=== PATIENT | male | born 1980 | race Caucasian/White ===

== ENCOUNTER 2017-12-01 11:21 | Emergency (ER) | payer BC, OTHER ==
--- NOTE | 2017-12-01 13:04 | RAD ---
ABDOMINAL SURVEY WITH UPRIGHT CHEST AND TWO VIEW ABDOMEN: HISTORY: Abdominal pain. FINDINGS: The lung borrego are clear. The bowel gas pattern is unremarkable. Scattered stool and gas are noted throughout the colon. No f ree air, mass, or abnormal calcification. IMPRESSION: Unremarkable abdominal survey. POS: JAN
== END 2017-12-01 13:27 | disposition home or self-care (01) ==
LOC: ERS 11:21
DX: R10.9 Unspecified abdominal pain (principal); V43.52XA Car driver injured in collision with other type car in traffic accident, initial encounter; W22.11XA Striking against or struck by driver side automobile airbag, initial encounter
CPT/HCPCS: 74022

== ENCOUNTER 2022-08-30 15:35 | Inpatient (IN) | payer BC ==
[~2022-08-30 15:35] MED LIST: Iopamidol-370 76% 500 ML 1 ML ONE
[2022-08-30] MEDS ORDERED: Bacitracin 1 PK ONE ×2 (15:41→16:01)
[2022-08-30] MEDS ORDERED: Boostrix 0.5 ML (Tdap) VIAL (>/=7 yrs of age) ONE (15:55)
[2022-08-30] MEDS ORDERED: CEFAZOLIN 2 GM VIAL ONE (15:55)
[2022-08-30 15:57] LABS: #Eosinphils 0.1 thou/uL (0.0-0.7); #Monocytes 0.7 thou/uL (0.11-0.59); #Neutrophils 5.2 thou/uL (1.40-6.50); %Basophils 0.4 % (0.0-1.0); %Eosinophils 0.9 % (0.0-10.0); %Monocytes 6.8 % (0.0-10.0); %Neutrophils 51.8 % (42.0-75.0); Hemoglobin 14.5 g/dL (14.0-18.0); Mean Corpuscular HGB CONC 32.9 g/dL (32.0-36.0); Mean Corpuscular Volume 94.4 fl (78.0-98.0); Mean Platelet Volume 7.2 fL (7.4-10.4); Platelet Count 289 10x3/uL (130-400); RBC Distribution Width 11.2 % (11.5-14.5); Red Blood Cell (RBC) Count 4.68 mill/uL (4.70-6.10); White Blood Cell (WBC) Count 9.9 10x3/uL (4.8-10.8)
[2022-08-30 16:19] LABS: ALT (SGPT) 30 U/L (8-55); AST (SGOT) 40 U/L (5-34); Albumin 4.6 g/dL (3.5-5.0); Alkaline Phosphatase 64 U/L (40-110); Anion Gap 14 mmol/L (10-20); BUN (Urea Nitrogen) 10 mg/dL (8.9-20.6); Bilirubin, Total 0.7 mg/dL (0.2-1.2); Calc. Creatinine Clearance 0 mL/min (70-130); Calcium 9.4 mg/dL (7.8-10.44); Carbon Dioxide 25 mmol/L (22-29); Chloride 104 mmol/L (98-107); Estimated GFR 109; Globulin 3.5 g/dL (2.4-3.5); Glucose 111 mg/dL (70-105); Potassium 3.5 mmol/L (3.5-5.1); Protein, Total 8.1 g/dL (6.0-8.3); Sodium 139 mmol/L (136-145)
[2022-08-30] MEDS ORDERED: Morphine 4 MG/ML VIAL ONE (16:28)
[2022-08-30] MEDS ORDERED: TETANUS, DIPHTHERIA TOX,ADULT (TDVAX) 0.5 ML VIAL IM ONE (17:37)
[2022-08-30] MEDS ORDERED: Morphine 2 MG/ML VIAL SLOW IVP PRN (17:37)
[2022-08-30] MEDS ORDERED: Promethazine HCl 25 MG/ML VIAL IM PRN (17:37)
[2022-08-30] MEDS ORDERED: hydrALAZINE 20 MG/ML VIAL SLOW IVP PRN (17:37)
[2022-08-30] MEDS ORDERED: Ondansetron PF 4 MG/2 ML Vial IVP PRN (17:37)
[2022-08-30] MEDS ORDERED: traMADol HCl 50 MG TAB PO PRN (17:41)
[2022-08-30] MEDS: traMADol HCl 50 MG TAB PO SCH (20:11)
[2022-08-30] MEDS: Acetaminophen 325 MG TAB PO SCH (20:11)
[2022-08-30] MEDS: CEFAZOLIN 2 GM in Sodium Chloride 0.9% 100 ML IVPB SCH (20:24)
[2022-08-30] MEDS: Sodium Chloride 0.9% 1,000 ML IV SCH (20:24)
[2022-08-30] MEDS: Famotidine/PF 20 mg/2ml Vial SLOW IVP SCH (20:24)
[2022-08-30] MEDS ORDERED: Morphine 4 MG/ML VIAL SLOW IVP PRN (21:19)
[2022-08-30 21:47] LABS: SARS-CoV-2 NAA Rapid Test Not Detected (NotDetected)
[2022-08-31] MEDS: traMADol HCl 50 MG TAB PO SCH ×5 (00:12→23:56)
[2022-08-31] MEDS: Acetaminophen 500 MG TAB PO SCH ×5 (00:20→23:56)
[2022-08-31] MEDS ORDERED: Acetaminophen 500 MG TAB PO SCH (00:30)
[2022-08-31] MEDS: Acetaminophen 325 MG TAB PO SCH (00:38)
[2022-08-31 03:20] VITALS: BMI 28.5
[2022-08-31] MEDS: Sodium Chloride 0.9% 1,000 ML IV SCH ×2 (05:41→11:05)
[2022-08-31] MEDS: CEFAZOLIN 2 GM in Sodium Chloride 0.9% 100 ML IVPB SCH ×3 (05:51→21:09)
[2022-08-31 06:38] LABS: Anion Gap 11 mmol/L (10-20); BUN (Urea Nitrogen) 11 mg/dL (8.9-20.6); Calc. Creatinine Clearance 142 mL/min (70-130); Calcium 8.6 mg/dL (7.8-10.44); Carbon Dioxide 27 mmol/L (22-29); Chloride 103 mmol/L (98-107); Estimated GFR 110; Glucose 93 mg/dL (70-105); Magnesium 2.1 mg/dL (1.6-2.6); Phosphorus 4.3 mg/dL (2.3-4.7); Potassium 4.3 mmol/L (3.5-5.1); Sodium 137 mmol/L (136-145)
[2022-08-31 06:53] LABS: Hemoglobin 13.8 g/dL (14.0-18.0); Mean Corpuscular HGB CONC 32.6 g/dL (32.0-36.0); Mean Corpuscular Hemoglobin 31.6 pg (27.0-31.0); Mean Corpuscular Volume 96.8 fl (78.0-98.0); Mean Platelet Volume 7.1 fL (7.4-10.4); Platelet Count 247 10x3/uL (130-400); RBC Distribution Width 11.1 % (11.5-14.5); Red Blood Cell (RBC) Count 4.36 mill/uL (4.70-6.10); White Blood Cell (WBC) Count 8.2 10x3/uL (4.8-10.8)
[2022-08-31 08:18] LABS: Band 3 % (5-11); Eosinophils 2 % (0-10); Lymphocytes 36 % (21-51); MDiff Complete? YES; Monocytes 7 % (0-10); Neutrophil 52 % (42-75); Platelet Morphology Comment Appears Adequate; RBC Morphology Normal
[2022-08-31] MEDS: Levothyroxine Sodium 75 MCG TAB PO SCH (08:34)
[2022-08-31] MEDS: Famotidine/PF 20 mg/2ml Vial SLOW IVP SCH ×2 (08:34→21:08)
[2022-08-31] MEDS: Bacitracin 1 PK TOP SCH ×3 (10:20→21:09)
[2022-08-31] MEDS ORDERED: fentaNYL PF 100 MCG/2 ML SYRINGE ONE (12:14)
[2022-08-31] MEDS ORDERED: Sodium Chloride 0.9% 100 ML ONE (12:26)
[2022-08-31] MEDS ORDERED: CEFAZOLIN 2 GM VIAL ONE (12:26)
[2022-08-31] MEDS ORDERED: PROPOFOL 200 MG/20 ML VIAL ONE (12:48)
[2022-08-31] MEDS ORDERED: Rocuronium Bromide 10 MG/ML (10ML VIAL) ONE (12:48)
[2022-08-31] MEDS ORDERED: Dexamethasone 20 MG/5 ML VIAL ONE (12:48)
[2022-08-31] MEDS ORDERED: Ketorolac Tromethamine 30 MG/ML VIAL ONE (12:48)
[2022-08-31] MEDS ORDERED: Ondansetron PF 4 MG/2 ML Vial ONE (12:48)
[2022-08-31] MEDS ORDERED: Glycopyrrolate 0.2 MG/ML 5 ML SYRINGE ONE (12:48)
[2022-08-31] MEDS ORDERED: NEOSTIGMINE 3 MG/3 ML SYR 3 MG/3 ML SYRINGE ONE (12:48)
[2022-08-31] MEDS ORDERED: ePHEDrine 50 MG/ML VIAL ONE (12:48)
[2022-08-31] MEDS ORDERED: Ondansetron HCl/PF 4 MG/2 ML Vial IVP PRN (14:11)
[2022-08-31] MEDS ORDERED: HYDROmorphone 2 MG/ML VIAL SLOW IVP PRN (14:11)
[2022-08-31] MEDS ORDERED: Promethazine HCl 25 MG/ML VIAL IVPB PRN (14:11)
[2022-08-31] MEDS ORDERED: Promethazine HCl 25 MG/ML VIAL IM PRN (14:11)
[2022-08-31] MEDS ORDERED: Bisacodyl 10 MG SUPP PR PRN (22:35)
[2022-08-31] MEDS ORDERED: Magnesium Citrate 300 ML BOT PO SCH (22:45)
[2022-08-31] MEDS ORDERED: Polyethylene Glycol 3350 17 GM Packet PO SCH (23:45)
[2022-09-01] MEDS: Acetaminophen 500 MG TAB PO SCH (05:15)
[2022-09-01] MEDS: traMADol HCl 50 MG TAB PO SCH (05:15)
[2022-09-01] MEDS: CEFAZOLIN 2 GM in Sodium Chloride 0.9% 100 ML IVPB SCH (05:21)
[2022-09-01] MEDS ORDERED: Senokot S 8.6-50 MG TAB PO SCH (09:00)
[2022-09-01 09:16] VITALS: BP 120/70; TEMP 98.4
[2022-09-01] MEDS ORDERED: Morphine 4 MG/ML VIAL SLOW IVP PRN (09:33)
[2022-09-01] MEDS: Morphine 4 MG/ML VIAL ONE ×2 (09:34→11:18)
[2022-09-01] MEDS: Famotidine/PF 20 mg/2ml Vial SLOW IVP SCH (09:35)
[2022-09-01] MEDS: Levothyroxine Sodium 75 MCG TAB PO SCH (09:41)
[2022-09-01] MEDS: Bacitracin 1 PK TOP SCH (09:41)
[2022-09-01] MEDS ORDERED: Polyethylene Glycol 3350 17 GM Packet PO SCH (22:35)
[2022-09-02] MEDS ORDERED: Levothyroxine Sodium 75 MCG TAB PO SCH (06:00)
== END 2022-09-01 12:15 | disposition home or self-care (01) | DRG 902 ==
LOC: EEVIPCON 15:35 → ERS 15:35 → SURG B 19:02
PROVIDERS: ADMIT Emergency Medicine; ATTEND Emergency Medicine
PROC: 0JBM0ZZ Excision of Left Upper Leg Subcutaneous Tissue and Fascia, Open Approach (ICD-10-PCS; principal; 2022-08-31)
PROC: 0JBM0ZZ Excision of Left Upper Leg Subcutaneous Tissue and Fascia, Open Approach (ICD-10-PCS; 2022-08-31)
DX: S81.042A Puncture wound with foreign body, left knee, initial encounter (principal); I96 Gangrene, not elsewhere classified; W34.00XA Accidental discharge from unspecified firearms or gun, initial encounter; S31.144A Puncture wound of abdominal wall with foreign body, left lower quadrant without penetration into peritoneal cavity, initial encounter; S31.149A Puncture wound of abdominal wall with foreign body, unspecified quadrant without penetration into peritoneal cavity, initial encounter
CPT/HCPCS: 74177; 80048; 80053; 83735; 84100; 85025; 88300; 90471; 90715; 96365; 96375; 97139; G0390; J1100; J1885; J2270; J2405; J2704; J3490; J7050; Q9967; S0028; U0002